=== PATIENT | male | born 1955 | race African-American/Black ===

== ENCOUNTER 2017-02-14 07:09 | Outpatient (CLI) | payer MEDICARE ==
[2015-12-15 23:18] VITALS: BMI 26.7
--- NOTE | ~2017-02-14 | OP ---
PATIENT NAME: STAR ELAM MEDICAL RECORD: [id number] :[birth year] LOCATION:D.CAT ADMISSION DATE: SURGEON: RAMEZ CLAY MD DATE OF OPERATION: 02/14/2017 PROCEDURES: 1. PTCA stent of the LAD diagonal. 2. Intravascular ultrasound, LAD. 3. Intravascular ultrasound, left circumflex. 4. Left heart catheterization. 5. Selective coronary angiography. 6. Left ventriculogram. INDICATIONS: Angina and coronary artery disease. PROCEDURE IN DETAIL: After informed consent was obtained and after detailed explanation of risks, benefits as well as alternative therapies, the patient elected to proceed with angiogram and angioplasty. The right femoral area was prepped and draped in normal sterile fashion. The right femoral artery was cannulated via modified Seldinger technique with placement of 6-Citizen Of [place] sheath. All catheters exchanged through this sheath. FINDINGS: Left ventriculogram was performed in standard 30-degree FERMIN view, reveals preserved cardiac wall motion, ejection fraction of 50%. SELECTIVE CORONARY ANGIOGRAPHY: 1. Left main showed no significant angiographic disease. 2. Left anterior descending has greater than 80% stenosis of a large diagonal system confirmed by intravascular ultrasound. 3. Left circumflex has mild irregularities, no stenosis greater than 30% confirmed by intravascular ultrasound. 4. Right coronary has moderate irregularities, but no flow-limiting stenosis. PTCA STENT OF THE LAD DIAGONAL: The stent used was a 2.5 x 14 mm Integrity. Result was 0% residual stenosis. OVERALL IMPRESSION: Successful percutaneous transluminal coronary angioplasty stent of the left anterior descending diagonal going from greater than 80% initial stenosis to 0% residual. TRANSINT:[id number] Voice Confirmation ID: [id number] DOCUMENT ID: [id number] RAMEZ CLAY MD CC: [id number] DICTATION DATE: 02/14/17 1049 JEWELRY SORTER: 02/14/17 1354 [facility] [address] [place] [address]
--- NOTE | ~2017-02-14 | HEMODYNAMI ---
PATIENT:STAR ELAM MEDICAL RECORD: [id number] : 59 LOCATION:DVINEET ADMISSION DATE: 02/14/17 Generatedon:02/14/201710:51 Patient name: STAR ELAM Patient #: [id number] SSN: [id number] : 1955 Date of study: 02/14/2017 Page: Of Hemodynamic Procedure Report Patient Data Patient Demographics Procedure consent was obtained First Name: STAR Gender: Male Last Name: PAPA : 1955 [facility] Initial: L Age: 61 year(s) Patient #: [id number] Race: Black SSN: [id number] Additional ID: [id number] Contact details Address: [address] [place] [address] [address] State: [place] City: [facility] Zip code: [address] Admission Admission Data Admission Date: 02/14/2017 Admission Time: 7:09 Arrival Date: 02/14/2017 Arrival Time: 7:09 Admit Source: Other Insurance Payor: Medicare Height (in.): 73 BSA: 2.06 (m2) Height (cm.): 185.42 BMI: 23.88 (kg/m2) Weight (lbs.): 181 Weight (kg.): 82.1 Lab Results Lab Result Date: 02/14/2017 Lab Result Time: 0:00 Biochemistry Name Units Result Min Max BUN mg/dl 16 --(---*)-- 7 18 Creatinine mg/dl 1.4 --(----)*- 0.6 1.3 CBC Name Units Result Min Max Hemoglobin g/dl 14.7 --(-*--)-- 13.5 17.5 Procedure Procedure Types Cath Procedure Diagnostic Procedure [facility] w/Coronaries FFR/IVUS Intra-Coronary IVUS Initial Intra-Coronary IVUS Additional PCI Procedure Coronary Stent Initial Peripheral Cath Diagnostic Procedure Cath Peripheral Four Vessel Arteriogram Procedure Description Procedure Date Procedure Date: 02/14/2017 Procedure Start Time: 10:23 Procedure End Time: 10:46 Procedure Staff Name Function Nabila Solorzano RT Monitor Maximiliano Barker RN Nurse Rogerio Betancourt MD Performing Physician Dolores Vieyra RT Scrub Indication Angina Procedure Data Cath Procedure Fluoroscopy Diagnostic fluoroscopy Total fluoroscopy Time: 7.8 time: 7.8 min min Diagnostic fluoroscopy Total fluoroscopy dose: dose: 1080 mGy 1080 mGy Contrast Material Contrast Material Type Amount (ml) Isovue 370 186 Entry Location Entry Primary Successful Side Size Upsize Upsize Entry Closure Succes sful Closure Location (Fr) 1 (Fr) 2 (Fr) Remarks Device Remarks Femoral Right 6 Fr Exoseal artery Short Estimated blood loss: 5 ml Diagnostic catheters Device Type Used For End Catheter Placement Cordis 5Fr Pigtail LV Angiography Catheter (MP) Cordis 5Fr JL 4.0 Left Coronary Catheter (MP) Angiography Cordis 5Fr 3DRC Catheter Right Coronary (MP) Angiography Diagnostic Infinity 5Fr Right Coronary AR 2 MOD catheter Angiography Procedure Complications No complications Procedure Medications Medication Administration Route Dosage Benadryl I.V. 50 mg Oxygen NC 2 l/min Lidocaine 2% added to field 20 Heparin Flush Bag added to field 2 bags (1000units/500ml NS) 0.9% NaCl I.V. 100 ml/hr Versed I.V. 1 mg Fentanyl I.V. 50 mcg Versed I.V. 1 mg Fentanyl I.V. 50 mcg Versed I.V. 1 mg Fentanyl I.V. 50 mcg Heparin Bolus I.V. 4000 units Integrilin (Bolus I.V. 7.3 ml 2mg/ml) Plavix P.O. 600 mg Hemodynamics Rest BSA: 2.06 (m2) HGB: 14.7 (g/dl) O2 Consumption: Estimated: 238.96 (ml/min) O2 Co nsumption indexed: Estimated:116 (ml/min/m) Heart Rate: 65 (bpm) Pressure Samples Time Site Value (mmHg) Purpose Heart Use Rate(bpm) 10:26 LV 143/26,29 Snapshot 82 Snapshots Pre Cath Intra NCS Post Cath Vital Signs Time Heart Resp SPO2 NIBP (mmHg) Rhythm Pain Sedation Rate (ipm) (%) Status Level (bpm) 10:09:04 65 19 99 142/80(111) NSR 0 (11) 10(A) , No pain 10:13:18 59 16 100 145/81(124) NSR 0 (11) 10(A) , No pain 10:17:34 75 19 97 130/79(100) NSR 0 (11) 10(A) , No pain 10:21:40 76 15 98 138/81(104) NSR 0 (11) 10(A) , No pain 10:25:50 76 17 96 133/85(97) NSR 0 (11) 9(A) , No pain 10:29:58 76 18 96 128/83(113) NSR 0 (11) 9(A) , No pain 10:34:07 77 17 97 136/78(108) NSR 0 (11) 9(A) , No pain 10:38:17 77 17 97 135/80(106) NSR 0 (11) 9(A) , No pain 10:42:27 76 16 98 129/81(105) NSR 0 (11) 9(A) , No pain 10:46:37 72 17 98 123/77(101) NSR 0 (11) 10(A) , No pain Medications Time Medication Route Dose Verified Delivered Reason Notes Effectiveness by by 10:12:12 Benadryl I.V. 50 mg Rogerio Buffie used for Asia Barker RN procedure 10:12:21 Oxygen NC 2 Rogerio Buffie used for l/min Asia Barker RN procedure 10:14:03 Lidocaine 2% added 20ml Rogerio Rogerio for local to vial Asia Betancourt MD anesthetic field 10:14:09 Heparin Flush added 2 Rogerio Rogerio used for Bag to bags Asia Betancourt MD procedure (1000units/500ml field NS) 10:14:18 0.9% NaCl I.V. 100 Rogerio Buffie Per physician ml/hr Asia Barkre RN 10:16:57 Versed I.V. 1 mg Rogerio Buffie for sedation Asia Barker RN 10:17:03 Fentanyl I.V. 50 Rogerio Buffie for sedation mcg Asia Barker RN 10:22:02 Versed I.V. 1 mg Rogerio Buffie for sedation Asia Barker RN 10:22:06 Fentanyl I.V. 50 Rogerio Buffie for sedation mcg Asia Barker RN 10:24:59 Versed I.V. 1 mg Rogerio Buffie for sedation Asia Barker RN 10:25:02 Fentanyl I.V. 50 Rogerio Viera for sedation mcg Asia Barker RN 10:32:52 Heparin Bolus I.V. 4000 Rogerio Viera for verifi ed units Asia Barker RN anticoagulation with dr betancourt 10:40:19 Integrilin I.V. 7.3 Rogerio Viera for wasted (Bolus 2mg/ml) ml Asia Barker RN antiplatelet 2.7 ml therapy of vial 10:48:46 Plavix P.O. 600 Rogerio Viera for mg Asia Barker RN antiplatelet therapy Procedure Log Time Note 9:48:41 Informed consent obtained and on chart 9:48:48 Admit Source: Other 9:48:53 Arrival Date: 02/14/2017 7:09:00 AM 9:49:00 Insurance Payor : Medicare 9:49:29 Diagnostic Cath Status : Elective 9:49:48 Indication : Angina 9:50:23 Lab Result : Hemoglobin 14.7 g/dl 9:50:23 Lab Result : Creatinine 1.4 mg/dl 9:50:23 Lab Result : BUN 16 mg/dl 9:50:27 Maximiliano Barker RN sent for patient. Start room use. 9:50:28 Time tracking: Regular hours 9:50:34 Plan of Care:Hemodynamics will remain stable., Cardiac rhythm will remain stable., Comfort level will be maintained., Respiratory function will remain adequate., Patient/ family verbilizes understanding of procedure., Procedure tolerated without complication., Recovers from procedure without complications.. 9:51:02 Procedure type changed to Cath procedure, Diagnostic procedure, LHC, LHC w/Coronaries, FFR/IVUS, Intra-Coronary IVUS Initial, Intra-Coronary IVUS Additional, PCI procedure, Coronary Stent Initial, Peripheral Cath Diagnostic Procedure, Cath Peripheral, Four Vessel Arteriogram 10:01:30 Patient received from ED to CCL 1 Alert and oriented. Tansferred to table in Supine position. 10:01:31 Correct patient and procedure confirmed by team. 10:01:31 Warm blankets applied, and petty hugger turned on for patient comfort. 10:01:33 ECG and BP/O2 sat monitors applied to patient. 10:07:54 Vital chart was started 10:07:55 Baseline sample Acquired. 10:08:00 Rhythm: sinus rhythm 10:08:01 Full Disclosure recording started 10:08:06 H&P Date Dictated: 02/14/2017 New H&P dictated by physician.. 10:08:07 Pre-procedure instructions explained to patient. 10:08:08 Pre-op teaching completed and patient verbalized understanding. 10:08:09 Family in waiting room. 10:08:10 Patient NPO since Midnight. 10:08:19 Is the patient allergic to Iodine/contrast media? No. 10:08:20 Was the patient premedicated? No 10:08:22 Is patient on blood thinner?Yes 10:08:25 ACC The patient was administered the following blood thiners within the last 24 hours: ACCAspirin 10:08:27 Patient diabetic? Yes. 10:08:28 If diabetic: On Metformin? Yes 10:08:33 If on Metformin: Last Dose? 02/13/2017 10:08:58 Previous problem with sedation/anesthesia? No ? 10:09:02 Snore? Yes 10:09:36 Sleep apnea? No 10:09:37 Deviated septum? No 10:09:38 Opens mouth fully? Yes 10:09:39 Sticks out tongue? Yes 10:09:45 Airway obstruction? Yes chf 10:09:49 Dentures? No ? 10:09:56 Pre procedure: right dorsailis pedis pulse 1+ Palpable, but thready & weak; easily obliterated 10:09:58 Patient pain scale 0/10 ?. 10:12:03 IV patent on arrival in right forearm with 0.9% NaCl at O. 10:12:10 Lab results completed and on chart. 10:12:12 Benadryl 50 mg I.V. was administered by Maximiliano Barker RN; used for procedure; 10:12:14 Right groin area was prepped with chlora-prep and draped in sterile fashion 10:12:15 Alarms reviewed by R. N. 10:12:16 Sharps counted by scrub and verified by R.N. 10:12:21 Oxygen 2 l/min NC was administered by Maximiliano Barker RN; used for procedure; 10:12:23 Use device set Femoral Dx 10:12:24 Acist Syringe opened to sterile field. 10:12:25 Medline Cath Pack opened to sterile field. 10:12:25 Bag Decanter opened to sterile field. 10:12:27 St Nikhil 260cm J .035 wire opened to sterile field. 10:12:28 Acist Hand Control opened to sterile field. 10:12:29 Tegaderm 4 x 4 opened to sterile field. 10:12:29 Diagnostic Infinity 5Fr Multipack catheter opened to sterile field. 10:12:29 Acist Manifold opened to sterile field. 10:12:43 Terumo 6Fr Brent Sheath opened to sterile field. 10:13:29 Physician arrived 10:13:30 Final Timeout: patient, procedure, and site verified with staff and physician. All members of the team are in agreement. 10::30 --------ALL STOP TIME OUT------ 10::32 Right groin site verified by team. 10:13:35 Physical assessment completed. ASA score P 2 - A patient with mild systemic disease as per Rogerio Betancourt MD. 10:13:38 Sedation plan: IV Moderate Sedation Versed, Fentanyl 10:14:03 Lidocaine 2% 20ml vial added to field was administered by Rogerio Betancourt MD; for local anesthetic; 10:14:09 Heparin Flush Bag (1000units/500ml NS) 2 bags added to field was administered by Rogerio Betancourt MD; used for procedure; 10:14:18 0.9% NaCl 100 ml/hr I.V. was administered by Maximiliano Barker RN; Per physician; 10:16:55 Zero performed for pressure channel P1 10:16:57 Versed 1 mg I.V. was administered by Maximiliano Barker RN; for sedation; 10:17:03 Fentanyl 50 mcg I.V. was administered by Maximiliano Barker RN; for sedation; 10:22:02 Versed 1 mg I.V. was administered by Maximiliano Barker RN; for sedation; 10:22:06 Fentanyl 50 mcg I.V. was administered by Maximiliano Barker RN; for sedation; 10:23:53 Procedure started. 10:23:57 Local anesthetic to right femoral artery with Lidocaine 2% by Rogerio Betancourt MD.INITIAL ACCESS ONLY 10:24:05 A 6 Fr Short sheath was inserted into the Right Femoral artery 10:24:23 Patient Height : 185.42 cm 10:24:27 Patient Weight : 82.1 kg 10:24:59 Versed 1 mg I.V. was administered by Maximiliano Barker RN; for sedation; 10:25:02 Fentanyl 50 mcg I.V. was administered by Maximiliano Barker RN; for sedation; 10:25:35 A Cordis 5Fr Pigtail Catheter (MP) was advanced over the wire and used for LV Angiography. 10:26:36 LV hemodynamics recorded. 10:26:37 LV gram done using FERMIN 10::40 Injector settings: Ml/sec: 5, Volume: 15, 10:26:50 EF : 50 % 10:26:58 Catheter removed. 10:27:08 A Cordis 5Fr JL 4.0 Catheter (MP) was advanced over the wire and used for Left Coronary Angiography. 10:27:35 LCA angiography performed. 10::38 Injector settings: Ml/sec: 3, Volume: 6, 10:27:56 Catheter removed. 10:28:07 A Cordis 5Fr 3DRC Catheter (MP) was advanced over the wire and used for Right Coronary Angiography. 10:29:24 Chat& (ChatAnd) BasixCompak Inflation Kit opened to sterile field. 10:29:25 Hebert Whisper J 300cm 0.014 guide wire opened to sterile field. 10:29:57 Normal Ovett Eagleye IVUS Catheter opened to sterile field. 10:30:10 Bilateral carotid angiography performed. 10:30:20 Catheter removed. 10:30:46 Cordis 6FR XBLAD 3.5 guide catheter opened to sterile field. 10:32:21 A Diagnostic Infinity 5Fr AR 2 MOD catheter was advanced over the wire and used for Right Coronary Angiography. 10:32:32 RCA angiography performed. 10:32:35 Injector settings: Ml/sec: 3, Volume: 6, 10:32:41 Catheter removed. 10:32:51 6 Fr xblad 3.5 guide catheter was inserted over the wire 10:32:52 Heparin Bolus 4000 units I.V. was administered by Maximiliano Barker RN; for anticoagulation; verified with dr betancourt 10:32:56 whisper wire advanced. 10:32:59 Wire advanced across lesion. 10:34:05 IVUS catheter advanced over wire. 10:38:32 IVUS pass to Circ lesion performed. 10:38:36 Wire redirected to lad. 10:40:19 Integrilin (Bolus 2mg/ml) 7.3 ml I.V. was administered by Maximiliano Barker RN; for antiplatelet therapy; wasted 2.7 ml of vial 10:41:23 IVUS pass to LAD lesion performed. 10:41:24 IVUS catheter removed over wire. 10:42:55 Inflation Number: 1 A Medtronic Integrity 2.5 x 14 stent was prepped and advanced across the Mid LAD. The stent was deployed at 17 SINTIA for 0:10 (min:sec). 10:42:58 Wire removed. 10:42:58 Stent catheter was removed intact over wire. 10:42:59 Guide catheter removed. 10:43:26 Cordis 6Fr Exoseal opened to sterile field. 10:43:54 Sheath removed intact; hemostasis achieved with Exoseal to the Right Femoral artery. 10:43:58 Procedure ended.(Physican Out) 10:45:13 Fluoroscopy time 07.80 minutes. 10:45:17 Fluoroscopy dose: 1080 mGy 10:45:17 Flurop Dose total: 1080 10:45:21 Contrast amount:Isovue 370 186ml. 10:45:22 Sharps counted by scrub and verified by R.N. 10:45:25 Insertion/operative site no bleeding no hematoma. 10:45:28 Post-op/insertion site Right Femoral artery dressed using a 4 x 4 and Tegaderm. 10:45:30 Post right femoral artery:stable 10:45:32 Post Procedure Pulses reassessed and unchanged 10:45:34 Post procedure rhythm: unchanged. 10:46:20 Estimated blood loss: 5 ml 10:46:22 Patient needs reinforcement of post procedure teaching. 10:46:22 Post procedure instruction explained to patient.Patient verbalizes understanding. 10:46:23 Procedure and supply charges have been captured, reviewed, submitted and are correct. 10:46:26 Procedure Complication : No complications 10:46:28 Vital chart was stopped 10:46:29 See physician's report for complete and final results. 10:46:47 Report given to Pre/Post Procedure Room. 10:46:50 Patient transfered to Pre/Post Procedure Room with Stretcher. 10:46:52 Full Disclosure recording stopped 10:46:52 Procedure ended. 10:47:00 ACC-PCI Only Patient was given prescriptions, or instructed by Rogerio Betancourt MD to start/continue the following medications upon discharge: Plavix 10:47:01 End room use (Document Last) 10:48:46 Plavix 600 mg P.O. was administered by Maximiliano Barker RN; for antiplatelet therapy; Intervention Summary Intervention Notes Time ActionType Lesion and Equipment Action# Pressure Duration Attributes Used 10:42:55 Place stent Mid LAD Medtronic 1 17 00:10 Integrity 2.5 x 14 stent Device Usage Item Name Manufacture Quantity Catalog Hospital Part Current Minimal L ot# / Number Charge Number Stock Stock Serial# Code Acist Acist 1 01349 359502 958889 [id number] 20 Syringe Medical Systems [employer] Bag Microtek 1 2002S 504538 80176 153113 5 Leinentausch. Medline Cardinal 1 [id number] 422326 82378 540433 [address] Nikhil 1 490397 992684 740523 345183 30 260cm J .035 wire Acist Hand Acist 1 16078 661078 848904 998740 5 The Price Wizards [employer] Inc Acist Acist 1 00938 983621 793732 515349 5 Bitfone Corporation Medical Systems Inc Diagnostic Cardinal 1 [id number] 587679 56959 873807 30 StatsMix 5Fr Multipack catheter Tegaderm 4 3M 1 1626W 332434 704620 104462 5 x 4 Terumo 6Fr Terumo 1 [id number] 700031 641662 568727 40 Brent Sheath Cordis 5Fr Cardinal 1 644766 5 Pigtail Health Catheter (MP) Cordis 5Fr Cardinal 1 408814 5 JL 4.0 Health Catheter (MP) Cordis 5Fr Cardinal 1 139504 5 3DRC Health Catheter (MP) Merit Merit 1 SY6162 258829 687247 044760 15 BasixCompak Medical Inflation Kit Hebert Hebert 1 [id number] 775691 197047 752357 5 Whisper J Vascular 300cm 0.014 guide wire Normal Normal 1 39531N 727494 131936 303511 8 Ovett Eagleye IVUS Catheter Cordis 6FR Cardinal 1 [id number] 657122 255805 958996 10 XBLAD 3.5 Health guide catheter Diagnostic Cardinal 1 [id number] 828050 007813 664099 20 Tiqetsity Health 5Fr AR 2 MOD catheter Medtronic Medtronic 1 [id number] 671871 557283 1 0 [id number] Integrity 2.5 x 14 stent Cordis 6Fr Cardinal 1 EX600 432030 032985 019112 10 [facility] Signature Audit [place] Stage Time Signature Unsigned Intra-Procedure 02/14/2017 Nabila Solorzano 10:51:34 AM RT(R) Signatures Monitor : Nabila Solorzano RT Signature : Date : Time : [facility] [address] [place] [address]
--- NOTE | ~2017-02-14 | CN ---
PATIENT NAME:STAR ELAM MEDICAL RECORD: [id number] : 59 LOCATION:D.CAT ADMIT DATE: ACCOUNT: [id number] CONSULTING PHYSICIAN: RAMEZ CLAY MD REFERRING PHYSICIAN: VIKA GILLESPIE MD DATE OF CONSULTATION: 02/14/2017 Cardiology Consultation ADMITTING DIAGNOSES: 1. Chest pain compatible with angina. 2. Diabetes. 3. Hypertension. 4. Smoking history. HISTORY OF PRESENT ILLNESS: Mr. Elam has multiple risk factors for coronary artery disease. He has been having 2 days of chest pain, chest discomfort has gotten worse. It is relatively typical anginal discomfort with dull aching sensation in the anterior chest, radiation to his neck as well as the left arm. He presented with severe episodes of it today, improved with nitro. He continues to have pain at the low level. His EKG is with no acute ST-T abnormalities. PHYSICAL EXAMINATION: GENERAL APPEARANCE: Well-nourished, well-developed, appears stated age. Level of distress, comfortable. PSYCHIATRIC: Mental status, alert, normal affect. Orientation, oriented to time, place and person. EYES: Lids and conjunctiva, noninjected. No discharge, no pallor. ENT: Lips, teeth, gums, normal dentition. Oropharynx, no cyanosis, no pallor. NECK: Carotid arteries, bilateral normal upstroke, no bruits, no thrills. JUGULAR VEINS: No jugular venous pressure or distention. CERVICAL LYMPH NODES: Nontender, nonenlarged. THYROID: Not enlarged. Nontender. No nodules. LUNGS: Respiratory effort, unlabored. CHEST: Normal curvature. No thoracic deformity. No chest wall tenderness. Percussion, resonant. Auscultation, clear. No wheezes, no rales, no rhonchi. CARDIOVASCULAR: Precordial exam, nondisplaced. No heaves or pericardial thrills. Rate and rhythm, regular. Heart sounds, normal S1, normal S2. No S3, no gallop, no rub. Systolic murmur, not heard. Diastolic murmur, not heard. EXTREMITIES: No cyanosis, no edema. Peripheral pulses, full and equal in all extremities, except as noted. No bruits appreciated. ABDOMEN: Soft, nondistended. Normal aorta. No bruit. Nontender. No masses. Liver, nontender, no hepatomegaly. Spleen, nontender, no splenomegaly. MUSCULOSKELETAL: No joint tenderness. No joint swelling. No erythema. NEUROLOGICAL: Normal gait, normal strength, normal tone. SKIN: Warm and dry. REVIEW OF SYSTEMS: The patient reports easy bruising but reports no swollen glands. The patient reports no fever, no night sweats, no significant weight gain, no significant weight loss. No significant exercise tolerance. The patient reports no dry eyes, no irritation, no vision change. Patient reports no difficulty hearing and no ear pain. Patient reports no frequent nose bleeds or nose and sinus problems. Patient reports on arm pain on exertion. No shortness of breath while lying down. No history of heart murmur. Patient CONSULT REPORT [id number] STAR ELAM reports no cough, no wheezing or coughing up blood. Patient reports no abdominal pain, no vomiting. Normal appetite. No diarrhea and not vomiting blood. No nausea and no constipation. Patient reports no incontinence. No difficulty urinating. No hematuria. No increased frequency. Patient reports no muscle aches. No weakness, no arthralgias, no back pain. No swelling of the extremities. Patient reports no abnormal mole, no jaundice, no rashes. Reports no loss of consciousness. No weakness and no numbness. No seizures, dizziness, or headaches. The patient reports no depression, no sleep disturbance, feeling safe in a relationship and no alcohol abuse. Patient reports on fatigue. Reports no runny nose or sinus pressure. No itching, no hives, and no frequent sneezing. OVERALL IMPRESSION: Chest pain compatible with angina in an escalating unstable fashion. A gentleman with multiple risk factors, most likely has hemodynamically significant coronary artery disease. We will proceed with coronary angiography. Further care depends upon the findings of the angiography. TRANSINT:[id number] Voice Confirmation ID: [id number] DOCUMENT ID: [id number] RAMEZ CALY MD CC: [id number] DICTATION DATE: 02/14/1740 FORENSIC DNA ANALYST: 02/14/17 1039 [facility] [address] [place] [address]
--- NOTE | ~2017-02-14 | OP ---
PATIENT NAME: STAR ELAM MEDICAL RECORD: [id number] LOCATION:[facility] ADMISSION DATE: SURGEON: RAMEZ CLAY MD DATE OF OPERATION: 02/14/2017 PROCEDURE: Four-vessel carotid and vertebral angiography. INDICATIONS: Dizziness, unsteady gait, carotid vascular disease. PROCEDURE IN DETAIL: After informed consent was obtained and after a detailed explanation of risks, benefits as well as alternative therapies, the patient elected to proceed with angiogram and 4-vessel angiography. The right femoral area was prepped and draped in normal sterile fashion. The right femoral artery was cannulated via modified Seldinger technique with placement of 5-[place] sheath. All catheters exchanged through this sheath. FINDINGS: There was a subselection of each subclavian as well as the left carotid. RIGHT SIDE: The common internal and external carotids have mild plaquing, none greater than 20%, no flow-limiting stenosis. Vertebral artery is devoid of disease. LEFT SYSTEM: The common internal and external carotids have mild plaquing, none greater than 20%, no flow-limiting stenosis. Vertebral artery is devoid of disease. OVERALL IMPRESSION: Minimal carotid vascular disease is present. No flow-limiting stenosis. Symptomatology is not secondary to carotid vascular insufficiency. TRANSINT:[id number] Voice Confirmation ID: [id number] DOCUMENT ID: [id number] RAMEZ CLAY MD CC: [id number] DICTATION DATE: 02/14/17 1049 APPLICATION HELPER: 02/14/17 1353 [facility] [address] [place] [address]
[~2017-02-14 07:09] MED LIST: BAYER CHEWABLE81 MG PO; COREG25 MG PO; GLUCOPHAGE1000 MG PO; HYDROCODON-ACE1 EAC7 PO; LANTUS INSULIN10 ML SC; LASIX20 MG PO; NEURONTIN600 MG PO; PRAVACHOL40 MG PO; PROTONIX40 MG PO; PROVENTIL HFA6.7 GM INH; XARELTO20 MG PO
[2017-02-14 07:48] LABS: BASOPHILS 0.8 % (0-2); EOSINOPHILS 5.7 % (0-7); HEMATOCRIT 44.1 % (42.0-54.0); HEMOGLOBIN 14.7 g/dL (13.5-17.5); IMMATURE GRANULOCYTES 0.2 % (0-5); LYMPHOCYTES 41.3 % (15-50); MCH 29.5 pg (26.0-34.0); MCHC 33.3 g/dL (31.0-37.0); MCV 88.4 fL (80.0-100.0); MONOCYTES 10.5 % (2-11); NEUTROPHILS 41.5 % (40-80); PLATELET COUNT 204 10x3/uL (130-400); RBC 4.99 10x6/uL (4.20-6.10); RDW 13.5 % (11.5-14.5); WBC 5.3 10x3/uL (4.8-10.8)
[2017-02-14 08:07] LABS: ALBUMIN 3.4 g/dL (3.4-5.0); ALKALINE PHOSPHATASE 75 U/L (46-116); ALT (SGPT) 16 U/L (10-68); CALC OSMOLALITY 282 mosm/kg (275-300); CALCIUM 8.6 mg/dL (8.5-10.1); CARBON DIOXIDE 26.2 mmol/L (21.0-32.0); CHLORIDE - SERUM 104 mmol/L (98-107); CREATININE - SERUM 1.4 mg/dL (0.6-1.3); GLUCOSE 160 mg/dL (74-106); POTASSIUM - SERUM 3.6 mmol/L (3.5-5.1); PROTEIN - SERUM 7.6 g/dL (6.4-8.2); SODIUM 140 mmol/L (136-145); UREA NITROGEN 16 mg/dL (7-18); eGFR NON AFRICAN AMERICAN 55 mL/min (90-120)
[2017-02-14 08:13] LABS: CREATINE KINASE 209 UL (21-232); PRO BNP 25 pg/mL (0-125); TROPONIN-I < 0.017 ng/mL (0.000-0.060)
[2017-02-14 08:45] LABS: CKMB 0.8 U/L (0.0-3.6)
--- NOTE | 2017-02-14 11:11 | NUR ---
1110 RECEIVED PT FROM [facility] [facility], PT DENIES ANY C/O. RIGHT GROIN DRESSING IS CDI, PEDAL PULSES PALPABLE. SINUS RHYTHM WITH RATE 64. FAMILY AT BEDSIDE, CALL LIGHT IN REACH.
[2017-02-14] MEDS ORDERED: PLAVIX75 MG PO (11:17)
[2017-02-14] MEDS ORDERED: BAYER CHEWABLE81 MG PO (11:17)
--- NOTE | 2017-02-14 11:31 | NUR ---
1125 PT DENIES ANY C/O. DRESSING TO RIGHT GROIN IS CDI, NO BLEEDING OR HEMATOMA NOTED AT SITE. PEDAL PULSES PALPABLE. SINUS RHYTHM, RATE 72.
--- NOTE | 2017-02-14 11:46 | NUR ---
1145 PT DENIES ANY C/O. DRESSING CDI TO RIGHT GROIN WITH NO BLEEDING OR HEMATOMA NOTED. PEDAL PULSES PALPABLE. SINUS RHYTHM, RATE OF 60. CALL LIGHT IN REACH.
--- NOTE | 2017-02-14 11:57 | NUR ---
1200 PT DENIES ANY C/O. 6 FR EXOSEAL REMAINS CDI, NO BLEEDING OR HEMATOMA NOTED. VSS.
--- NOTE | 2017-02-14 12:16 | NUR ---
1215 PT DENIES ANY C/O. DRESSING TO RIGHT GROIN IS CDI, NO BLEEDING OR HEMATOMA NOTED. VSS.
--- NOTE | 2017-02-14 13:00 | NUR ---
CHEST PAIN DENIED WITH 6 FR EXOSEAL R/GROIN CDI NO BLEEDING NO HEMATOMA NOTED. SANDWICH AND SODA PROVIDED TO BEDSIDE
--- NOTE | 2017-02-14 13:36 | NUR ---
1330 PT CHICHO SANDWICH TRAY WITH NO C/O. DRESSING TO RIGHT GROIN IS CDI, NO BLEEDING OR HEMATOMA NOTED. VSS.
--- NOTE | 2017-02-14 15:25 | NUR ---
1430 PT DENIES ANY C/O. DRESSING TO RIGHT GROIN IS CDI, NO BLEEDING OR HEMATOMA NOTED. PEDAL PULSES PALPABLE. VSS. 1500 IV HAS BEEN DC'D WITH CATH INTACT. PT HAS VOIDED APPROX 600 CC LIGHT YELLOW URINE USING URINAL. DENIES ANY C/O. IS DRESSING FOR DC TO HOME. 1510 REVIEWED DC INSTRUCITONS WITH PT WHO VERBALIZES UNDERSTANDING. DRESSING TO GROIN REMAINS CDI. PLAVIX RX, STENT CARD, EXOSEAL BOOKLET AND HOMECARE BOOKLET SENT WITH PT. PT ESCORTED TO PRIVATE AUTO VIA WC WITH FRIEND DRIVING HIM HOME.
== END 2017-02-14 15:10 | disposition home or self-care (01) ==
LOC: D.ER 07:09 → D.CATH 07:09 → EDSTATUS 09:00 → D.CATH 15:10
PROVIDERS: Emergency Medicine
DX: I25.119 Atherosclerotic heart disease of native coronary artery with unspecified angina pectoris (principal); I65.23 Occlusion and stenosis of bilateral carotid arteries; I10 Essential (primary) hypertension; R26.81 Unsteadiness on feet; E11.9 Type 2 diabetes mellitus without complications; Z87.891 Personal history of nicotine dependence

== ENCOUNTER 2017-02-21 07:07 | Emergency (ER) | payer MEDICARE ==
[2015-12-15 23:18] VITALS: BMI 26.7
[~2017-02-21 07:07] MED LIST changes: +PLAVIX75 MG PO
[2017-02-21 07:54] LABS: HEMATOCRIT 44.9 % (42.0-54.0); HEMOGLOBIN 15.3 g/dL (13.5-17.5); MCH 29.7 pg (26.0-34.0); MCHC 34.1 g/dL (31.0-37.0); MCV 87.2 fL (80.0-100.0); MEAN PLATELET VOLUME 9.1 fL (7.4-10.4); RBC 5.15 10x6/uL (4.20-6.10); RDW 13.3 % (11.5-14.5); WBC 5.7 10x3/uL (4.8-10.8)
[2017-02-21 07:55] LABS: PLATELET COUNT 249 10x3/uL (130-400)
[2017-02-21 08:17] LABS: ALBUMIN 3.7 g/dL (3.4-5.0); ANION GAP 13.7 mmol/L (8-16); BILIRUBIN - TOTAL 0.24 mg/dL (0.2-1.3); CALCIUM 9.1 mg/dL (8.5-10.1); CARBON DIOXIDE 24.4 mmol/L (21.0-32.0); CREATININE - SERUM 1.3 mg/dL (0.6-1.3); POTASSIUM - SERUM 4.1 mmol/L (3.5-5.1); PROTEIN - SERUM 8.3 g/dL (6.4-8.2); TROPONIN-I 0.027 ng/mL (0.000-0.060)
[2017-02-21 08:23] LABS: BASOPHILS 1 % (0-2); EOSINOPHILS 1 % (0-7); LYMPHOCYTES 64 % (15-50); MONOCYTES 9 % (2-11); NEUTROPHILS 23 % (40-80); PLATELET ESTIMATE NORMAL
== END 2017-02-21 09:25 | disposition home or self-care (01) ==
LOC: D.ER 07:07
PROVIDERS: Emergency Medicine
DX: R06.00 Dyspnea, unspecified (principal); I50.9 Heart failure, unspecified; I10 Essential (primary) hypertension; E11.9 Type 2 diabetes mellitus without complications; Z86.73 Personal history of transient ischemic attack (TIA), and cerebral infarction without residual deficits; F17.200 Nicotine dependence, unspecified, uncomplicated

== ENCOUNTER 2017-03-28 09:28 | Emergency (ER) | payer MEDICARE ==
[2015-12-15 23:18] VITALS: BMI 26.7
[2017-03-28 10:00] LABS: BASOPHILS 0.7 % (0-2); HEMATOCRIT 44.6 % (42.0-54.0); HEMOGLOBIN 14.9 g/dL (13.5-17.5); IMMATURE GRANULOCYTES 0.2 % (0-5); LYMPHOCYTES 38.3 % (15-50); MCHC 33.4 g/dL (31.0-37.0); MCV 86.9 fL (80.0-100.0); MEAN PLATELET VOLUME 9.3 fL (7.4-10.4); MONOCYTES 9.3 % (2-11); NEUTROPHILS 49.5 % (40-80); RBC 5.13 10x6/uL (4.20-6.10); RDW 13.5 % (11.5-14.5); WBC 5.6 10x3/uL (4.8-10.8)
[2017-03-28 10:02] LABS: PLATELET COUNT 184 10x3/uL (130-400)
[2017-03-28 10:16] LABS: ALBUMIN 3.8 g/dL (3.4-5.0); BILIRUBIN - TOTAL 0.67 mg/dL (0.2-1.3); CALCIUM 9.2 mg/dL (8.5-10.1); CARBON DIOXIDE 24.8 mmol/L (21.0-32.0); CREATININE - SERUM 1.4 mg/dL (0.6-1.3); POTASSIUM - SERUM 3.8 mmol/L (3.5-5.1); PROTEIN - SERUM 8.4 g/dL (6.4-8.2)
== END 2017-03-28 11:46 | disposition home or self-care (01) ==
LOC: D.ER 09:28
PROVIDERS: Emergency Medicine
DX: R06.00 Dyspnea, unspecified (principal); R06.02 Shortness of breath; E11.9 Type 2 diabetes mellitus without complications; I10 Essential (primary) hypertension